=== PATIENT | female | born 1985 | race Caucasian/White ===

== ENCOUNTER 2018-01-08 14:57 | Emergency (ER) | payer MEDICAID, SELFPAY ==
[2018-01-08] MEDS ORDERED: Acetaminophen 500 MG TAB ONE (16:26)
[2018-01-08] MEDS ORDERED: Ibuprofen 200 MG TAB ONE (17:16)
--- NOTE | 2018-01-08 18:33 | CT ---
NONCONTRAST CT HEAD: Date: 01-08-18 History: Left ear pain, dizziness. Ear pain with blood in ear today. Headache for a few days. Comparison: None available. FINDINGS: There is no evidence of a hemorrhage, acute infarction, mass effect, or midline shift. The ventricula r system is normal in size, shape, and position. Visualized paranasal sinuses and mastoid air cells a re clear. Calvarial structures are intact. IMPRESSION: No acute intracranial abnormality is demonstrated. POS: [facility]
== END 2018-01-08 18:06 | disposition home or self-care (01) ==
LOC: ERS 14:57
DX: H72.92 Unspecified perforation of tympanic membrane, left ear (principal); F17.210 Nicotine dependence, cigarettes, uncomplicated
CPT/HCPCS: 70450

== ENCOUNTER 2018-02-07 10:15 | Emergency (ER) | payer MEDICAID, SELFPAY | END 2018-02-07 10:44 | disposition home or self-care (01) | LOC: ERS 10:15 | DX: K02.9 Dental caries, unspecified (principal); F17.210 Nicotine dependence, cigarettes, uncomplicated | CPT/HCPCS: 99282 ==

== ENCOUNTER 2018-05-22 22:42 | Emergency (ER) | payer SELFPAY ==
--- NOTE | 2018-05-22 23:17 | RAD ---
RADIOGRAPH LEFT KNEE 4 VIEWS: 05/22/18 HISTORY: 32-year-old female status post acute traumatic injury to the left knee due to fall, now with decrease d mobility and pain. FINDINGS: No joint effusion. No fracture or dislocation. Joint spaces are maintained without erosions or osteop hytes. IMPRESSION: Negative. POS: [facility]
[2018-05-22] MEDS ORDERED: Ibuprofen 800 MG TAB ONE (23:30)
[2018-05-22] MEDS ORDERED: HYDROcodone/Acetaminophen 5/325 mg Tablet ONE ×2 (23:30→23:36)
== END 2018-05-23 00:03 | disposition home or self-care (01) ==
LOC: ERS 22:42
DX: S80.02XA Contusion of left knee, initial encounter (principal); F31.9 Bipolar disorder, unspecified; F17.210 Nicotine dependence, cigarettes, uncomplicated; W10.9XXA Fall (on) (from) unspecified stairs and steps, initial encounter

== ENCOUNTER 2018-07-22 10:02 | Emergency (ER) | payer SELFPAY ==
[2018-07-22] MEDS ORDERED: Morphine 10 MG/ML VIAL ONE (10:26)
== END 2018-07-22 11:32 | disposition home or self-care (01) ==
LOC: ERS 10:02
DX: K02.9 Dental caries, unspecified (principal); F31.9 Bipolar disorder, unspecified
CPT/HCPCS: 96372; J2270

== ENCOUNTER 2018-12-07 16:30 | Emergency (ER) | payer SELFPAY ==
[2018-12-07 17:33] LABS: #Basophils 0.1 thou/uL (0.0-0.2); #Eosinphils 0.1 thou/uL (0.0-0.7); #Lymphocytes 2.2 thou/uL (1.20-3.40); #Monocytes 0.6 thou/uL (0.11-0.59); %Basophils 0.7 % (0.0-1.0); %Eosinophils 0.9 % (0.0-10.0); %Lymphocytes 20.1 % (21.0-51.0); %Monocytes 5.7 % (0.0-10.0); %Neutrophils 72.7 % (42.0-75.0); Hemoglobin 10.9 g/dL (12.0-16.0); Mean Corpuscular HGB CONC 31.1 g/dL (32.0-36.0); Mean Corpuscular Hemoglobin 24.2 pg (27.0-31.0); Mean Corpuscular Volume 77.9 fL (78.0-98.0); Platelet Count 248 thou/uL (130-400); RBC Distribution Width 14.5 % (11.5-14.5)
--- NOTE | 2018-12-07 17:52 | RAD ---
TWO VIEWS OF CHEST 12/07/18 COMPARISON: None. HISTORY: Chest pain radiating into the left shoulder with cough. FINDINGS: There is no pneumothorax or pleural fluid. No focal consolidation or alveolar edema. Heart and medias tinal contours appear unremarkable. IMPRESSION: No acute findings. POS: [facility]
[2018-12-07 17:57] LABS: ALT (SGPT) 21 U/L (8-55); AST (SGOT) 18 U/L (5-34); Albumin 4.3 g/dL (3.5-5.0); Alkaline Phosphatase 88 U/L (40-150); Anion Gap 12 mmol/L (10-20); BUN (Urea Nitrogen) 9 mg/dL (7.0-18.7); Bilirubin, Total 0.3 mg/dL (0.2-1.2); CK (CPK) 89 U/L (29-168); Calc. Creatinine Clearance 0 mL/min (70-130); Carbon Dioxide 28 mmol/L (22-29); Chloride 104 mmol/L (98-107); Estimated GFR-MDRD Greater than 90; Globulin 2.6 g/dL (2.4-3.5); Glucose 90 mg/dL (70-105); Potassium 4.1 mmol/L (3.5-5.1); Protein, Total 6.9 g/dL (6.0-8.3); Sodium 140 mmol/L (136-145)
== END 2018-12-07 18:38 | disposition home or self-care (01) ==
LOC: ERS 16:30
DX: J45.909 Unspecified asthma, uncomplicated (principal); F31.9 Bipolar disorder, unspecified; D64.9 Anemia, unspecified
CPT/HCPCS: 36415; 71046; 80053; 82550; 84484; 85025; 87804; 93005

== ENCOUNTER 2020-02-02 23:40 | Emergency (ER) | payer SELFPAY ==
[2020-02-03 00:12] LABS: Bilirubin Negative (Negative); Blood, Urine 1+ (Negative); Clarity Turbid (Clear); Glucose, Urine (Dipstick) Normal (Negative); Leukocyte 500 Leu/uL (Negative); Nitrite 2+ (Negative); Protein, Urine (Dipstick) 50 mg/dL (Neg-Trace); Urobilinogen Normal mg/dL (Less than 2)
[2020-02-03 00:13] LABS: Bacteria/HPF 1+ HPF (None Seen); WBC/HPF Greater than 50 HPF (0-3)
[2020-02-03 00:55] LABS: Pregnancy Test - Urine (BHCG) Negative (Negative); Pregu Control Background? CLEAR/WHITE (CLR/WHITE); Pregu Control Bar Appear? YES (CONTROL BAR); Specific Gravity 1.027 (1.002-1.036)
== END 2020-02-03 01:50 | disposition home or self-care (01) ==
LOC: ERS 23:40
DX: N39.0 Urinary tract infection, site not specified (principal); J45.909 Unspecified asthma, uncomplicated; D64.9 Anemia, unspecified; F31.9 Bipolar disorder, unspecified; F17.200 Nicotine dependence, unspecified, uncomplicated
CPT/HCPCS: 81003; 81015; 81025; 99283

== ENCOUNTER 2020-03-19 23:31 | Emergency (ER) | payer SELFPAY ==
[2020-03-20 00:35] LABS: #Basophils 0.1 thou/uL (0.0-0.2); #Eosinphils 0.1 thou/uL (0.0-0.7); #Lymphocytes 2.2 thou/uL (1.20-3.40); #Monocytes 0.7 thou/uL (0.11-0.59); #Neutrophils 6.6 thou/uL (1.40-6.50); %Basophils 0.6 % (0.0-1.0); %Eosinophils 1.4 % (0.0-10.0); %Lymphocytes 22.5 % (21.0-51.0); %Monocytes 7.1 % (0.0-10.0); %Neutrophils 68.4 % (42.0-75.0); Hemoglobin 11.4 g/dL (12.0-16.0); Mean Corpuscular HGB CONC 31.8 g/dL (32.0-36.0); Mean Corpuscular Hemoglobin 25.7 pg (27.0-31.0); Mean Corpuscular Volume 80.9 fL (78.0-98.0); Mean Platelet Volume 9.1 fL (7.4-10.4); Platelet Count 278 thou/uL (130-400); Red Blood Cell (RBC) Count 4.45 mill/uL (4.20-5.40); White Blood Cell (WBC) Count 9.6 thou/uL (4.8-10.8)
[2020-03-20 00:58] LABS: ALT (SGPT) 16 U/L (8-55); AST (SGOT) 20 U/L (5-34); Albumin 4.1 g/dL (3.5-5.0); Alkaline Phosphatase 72 U/L (40-110); Anion Gap 13 mmol/L (10-20); BUN (Urea Nitrogen) 10 mg/dL (7.0-18.7); Bilirubin, Total 0.3 mg/dL (0.2-1.2); Calc. Creatinine Clearance 0 mL/min (70-130); Calcium 9.2 mg/dL (7.8-10.44); Carbon Dioxide 25 mmol/L (22-29); Chloride 105 mmol/L (98-107); Estimated GFR-MDRD 80; Globulin 2.9 g/dL (2.4-3.5); Glucose 86 mg/dL (70-105); Lipase 34 U/L (8-78); Potassium 3.6 mmol/L (3.5-5.1); Sodium 139 mmol/L (136-145)
[2020-03-20 02:40] LABS: Bilirubin Negative (Negative); Blood, Urine 1+ (Negative); Clarity Turbid (Clear); Glucose, Urine (Dipstick) Normal (Negative); Leukocyte 25 Leu/uL (Negative); Nitrite Negative (Negative); Protein, Urine (Dipstick) 10 mg/dL (Neg-Trace); Urobilinogen Normal mg/dL (Less than 2)
[2020-03-20 02:41] LABS: Bacteria/HPF 1+ HPF (None Seen); Pregnancy Test - Urine (BHCG) Negative (Negative); Pregu Control Background? CLEAR/WHITE (CLR/WHITE); Pregu Control Bar Appear? YES (CONTROL BAR); Specific Gravity 1.024 (1.002-1.036)
== END 2020-03-20 02:50 | disposition home or self-care (01) ==
LOC: ERS 23:31
DX: B34.9 Viral infection, unspecified (principal); K92.1 Melena; J45.909 Unspecified asthma, uncomplicated; D64.9 Anemia, unspecified; F41.9 Anxiety disorder, unspecified; F31.9 Bipolar disorder, unspecified; F17.210 Nicotine dependence, cigarettes, uncomplicated
CPT/HCPCS: 36415; 80053; 81003; 81015; 81025; 82274; 83690; 85025; 99284

== ENCOUNTER 2021-01-23 13:35 | Emergency (ER) | payer SELFPAY ==
[2021-01-23] MEDS ORDERED: Ketorolac Tromethamine 30 MG/ML VIAL ONE (14:36)
== END 2021-01-23 14:53 | disposition home or self-care (01) ==
LOC: ERS 13:35
DX: K02.9 Dental caries, unspecified (principal); K03.81 Cracked tooth; J45.909 Unspecified asthma, uncomplicated; D64.9 Anemia, unspecified; F17.210 Nicotine dependence, cigarettes, uncomplicated; Z79.899 Other long term (current) drug therapy
CPT/HCPCS: 96372; 99282; J1885

== ENCOUNTER 2021-10-29 01:07 | Emergency (ER) | payer SELFPAY ==
[2021-10-29] MEDS ORDERED: Ibuprofen 800 MG TAB ONE (01:33)
== END 2021-10-29 02:05 | disposition home or self-care (01) ==
LOC: ERS 01:07
DX: S93.401A Sprain of unspecified ligament of right ankle, initial encounter (principal); J45.909 Unspecified asthma, uncomplicated; D64.9 Anemia, unspecified; F17.210 Nicotine dependence, cigarettes, uncomplicated; X50.9XXA Other and unspecified overexertion or strenuous movements or postures, initial encounter